=== PATIENT | female | born 1940 | race Two or more races ===

== ENCOUNTER 2017-07-29 08:45 | Emergency (ER) | payer OTHER ==
[2017-07-29] MEDS ORDERED: NS 500 ML IV ONE (09:08)
--- NOTE | 2017-07-29 09:18 | EDPHY ---
H & P Time Seen by Provider: 07/29/17 08:59 HPI/ROS: HPI Headache. History of brain aneurysm. 76-year-old female by private vehicle with her son. This patient complains of a chronic headache which she has had for about a year. The headache is described as mostly posterior radiating down into her occipital area. She reports that it has been worsening over the last month. And was significantly worse yesterday and today. She has been diagnosed with a brain aneurysm and recently had advanced CT and MR imaging on July 19. She is scheduled to see Dr. Chavez of the neurosurgical service on August 10. She was told that if her headache worsens she was to come to the emergency department. She called the office of Dr. Chavez and was sent to the ER. MR imaging of the brain from July 19 of this year indicates a 7 mm aneurysm identified at the right posterior communicating artery. MR angiogram of the carotid and vertebral vessels was unremarkable. ROS: Constitutional: No fever, no chills. No weakness. Eyes: No discharge. No changes in vision. ENT: No sore throat. No nasal congestion or rhinorrhea. Respiratory: No cough. No shortness of breath. Cardiac: No chest pain, no palpitations. Gastrointestinal: No abdominal pain, no vomiting, no diarrhea. Genitourinary: No hematuria. No dysuria or increased frequency with urination. Musculoskeletal: No back pain. No neck pain. No myalgias or arthralgias. Skin: No rashes. Neurological: As above. No focal weakness or altered sensation. Past medical history: As above. Social history: Here with her son. Nonsmoker. Denies alcohol. Physical Exam: General Appearance: Alert, no distress. This patient is responding to questions appropriately and in full sentences. This patient appears well- hydrated and well-nourished. Eyes: Pupils equal and round no pallor or injection. No lid edema, erythema or injection. No photophobia. No nystagmus. Respiratory: There are no retractions, lungs are clear to auscultation with good air movement bilaterally. Cardiovascular: Regular rate and rhythm. No murmur. Gastrointestinal: Abdomen is soft and nontender, no masses, bowel sounds normal. No focal tenderness at McBurney's point. No Martin sign. Neurological: Motor sensory function is grossly intact. Cranial nerves are normal. Gait is normal. Skin: Warm and dry, no rashes. Musculoskeletal: Neck is supple and nontender. No significant suboccipital pain. No pain on flexion of the neck. Extremities are symmetrical. All joints range without pain or impingement. Psychiatric: No agitation. No depression. Database: EKG: Imaging: Noncontrast CT scan of the brain: No acute pathology. Results were discussed with staff radiologist Dr. Chepe Martins. Please see his report for further details below. CT angiogram of the brain: No acute pathology. Results were discussed with staff radiologist Dr. Chepe Martins. Please see his report for further details below. Procedures: Emergency department course: IV placed. She was placed on a cardiac catheterization technologist vital signs reviewed. She is hypertensive initially in triage with a blood pressure of 167/109. Blood pressure will be monitored closely. 12:05 p.m., spoke with Dr. Crain of Neurosurgery. Results of CT angiogram as above discussed. Discussed previous MRAs as well. He feels comfortable with the patient going home and following up with Dr. Chavez on Monday. 12:10 p.m., patient re-evaluated. Resting comfortably at this time. Repeat neurologic Assessment is nonfocal. She denies any significant headache now. Results of her CT scans were discussed with her and her son. I discussed my conversation with Dr. Crain as well. Plan will be to discharge her to home and she will follow up with Dr. Chavez on August 10 as scheduled. I discussed thunderclap headache precautions and return precautions with her and her son in detail. She feels comfortable going home. All of her questions were answered. She was discharged in good condition Differential Diagnosis: The differential diagnosis on this patient includes but is not limited to chronic headache, history of brain aneurysm. Ruptured aneurysm, acutely expanding aneurysm, meningitis, encephalitis, subarachnoid hemorrhage unlikely. This represents a partial list of diagnoses considered. These considerations are based on history, physical exam, past history, reassessment and diagnostic testing. Smoking Status: Never smoked Constitutional: Initial Vital Signs Temperature (C) 36.9 C 07/29/17 08:53 Heart Rate 97 07/29/17 08:53 Respiratory Rate 16 07/29/17 08:53 Blood Pressure 167/109 H 07/29/17 08:53 O2 Sat (%) 95 07/29/17 08:53 O2 Delivery Mode Room Air Allergies/Adverse Reactions: No Known Allergies Allergy (Unverified 07/29/17 08:56) Home Medications: Medication Instructions Recorded Bp Med 07/29/17 Medical Decision Making - Data Points Laboratory Results: Laboratory Results 07/29/17 09:15 07/29/17 09:15 Medications Given: Discontinued Medications Sodium Chloride (Ns) 500 mls @ 0 mls/hr IV ONCE ONE; Wide Open PRN Reason: Protocol Stop: 07/29/17 09:09 Last Admin: 07/29/17 09:30 Dose: 500 mls Departure - Departure Disposition: Home, Routine, Self-Care Clinical Impression: Brain aneurysm, Headache Condition: Good Instructions: General Headache (ED), Nonruptured Cerebral Aneurysm (DC) Additional Instructions: Read and follow provided instructions. Follow-up with Dr. Chavez of the neurosurgical service as scheduled on August 10. Return to the emergency department for worsening headache, sudden onset thunderclap headache as discussed, instantly maximal intensity headache or other serious concerns. Referrals: KENNEDY OWENS [Other] - As per Instructions Ludwin Chavez MD [Medical Doctor] - As per Instructions
[2017-07-29 09:29] LABS: % IMMATURE GRANULYOCYTES 0.4 % (0.0-1.1); ABSOLUTE IMMATURE GRANULOCYTES 0.02 10^3/uL (0.00-0.10); ADD DIFF? NO; ADD MORPH? NO; ADD SCAN? NO; ATYPICAL LYMPHOCYTE FLAG 0 (0-99); FRAGMENT RBC FLAG 0 (0-99); HEMOGLOBIN 13.8 g/dL (12.6-16.3); LEFT SHIFT FLG 0 (0-99); LIPEMIA HEMOLYSIS FLAG 90 (0-99); MEAN CELL HEMOGLOBIN 35.8 pg (27.9-34.1); MEAN CELL HEMOGLOBIN CONCENTR. 36.3 g/dL (32.4-36.7); MEAN CELL VOLUME 98.4 fL (81.5-99.8); MEAN PLATELET VOLUME 9.8 fL (8.7-11.7); PLATELET CLUMPS FLAG 0 (0-99); PLATELET COUNT 226 10^3/uL (150-400); RED BLOOD CELL COUNT 3.86 10^6/uL (4.18-5.33); RED CELL DISTRIBUTION WIDTH 12.2 % (11.5-15.2)
[2017-07-29 09:38] LABS: ANION GAP 18 mEq/L (8-16); CALCIUM 10.3 mg/dL (8.5-10.4); CARBON DIOXIDE 20 mEq/l (22-31); CHLORIDE 108 mEq/L (97-110); CREATININE 0.7 mg/dL (0.6-1.0); GLOMERULAR FILTRATION RATE > 60; GLUCOSE 100 mg/dL (70-100); POTASSIUM 4.2 mEq/L (3.5-5.2); SODIUM 146 mEq/L (134-144)
[2017-07-29] MEDS ORDERED: IOPAMIDOL (ISOVUE 370) 100 ML BTL IV ONE (10:13)
[2017-07-29 12:11] VITALS: BP 130/90; PULSE 82; RESP 18; TEMP 96.8; O2SAT 97
== END 2017-07-29 12:33 | disposition home or self-care (01) ==
DX: R51 Headache (principal); I67.1 Cerebral aneurysm, nonruptured; E86.9 Volume depletion, unspecified
CPT/HCPCS: 70450; 70496; 96360; 99285; Q9967

== ENCOUNTER 2017-08-31 13:45 | Day surgery (SDC) | payer OTHER ==
[2017-08-31] MEDS ORDERED: GLUCAGON HCL 1 MG VIAL IVP PRN (13:50)
[2017-08-31] MEDS ORDERED: MEPERIDINE 25 MG/ML SYR IVP PRN (13:50)
[2017-08-31] MEDS ORDERED: NALOXONE HCL 0.4 MG/ML INJ IVP PRN (13:50)
[2017-08-31] MEDS ORDERED: fentaNYL 100 MCG/2 ML INJ IVP PRN (13:50)
[2017-08-31] MEDS ORDERED: FLUMAZENIL 0.5 MG/5 ML MDV IVP PRN (13:50)
[2017-08-31] MEDS ORDERED: ALTEPLASE 2 MG VIAL IVP PRN (13:50)
[2017-08-31] MEDS ORDERED: HEPARIN 10,000 UNIT/10 ML MDV (1,000 UNIT/ML) IVP PRN (13:50)
[2017-08-31] MEDS ORDERED: PROTAMINE SULFATE 50 MG/5 ML VIAL IVP PRN (13:50)
[2017-08-31] MEDS ORDERED: NALOXONE HCL 0.4 MG/ML INJ ONE (13:56)
[2017-08-31] MEDS ORDERED: fentaNYL 100 MCG/2 ML INJ ONE ×2 (13:56→13:57)
[2017-08-31] MEDS ORDERED: FLUMAZENIL 0.5 MG/5 ML MDV IVP ONE (13:56)
[2017-08-31] MEDS ORDERED: MIDAZOLAM 2 MG/2 ML VIAL ONE (13:57)
[2017-08-31] MEDS ORDERED: NS 1,000 ML IV SCH ×2 (14:00→16:45)
[2017-08-31 14:18] VITALS: PULSE 78; TEMP 97.7
[2017-08-31] MEDS: MIDAZOLAM 2 MG/2 ML VIAL IVP PRN (14:45)
[2017-08-31] MEDS ORDERED: IOPAMIDOL (ISOVUE-300) 100 ML BTL ONE (16:05)
[2017-08-31] MEDS ORDERED: ONDANSETRON 4 MG/2 ML VIAL IVP PRN (16:44)
[2017-08-31] MEDS ORDERED: OXYCODONE/APAP 5/325 TAB PO PRN (16:44)
[2017-08-31 20:40] VITALS: RESP 16
[2017-08-31 20:41] VITALS: BP 128/68; O2SAT 94
[2017-09-01] MEDS: MIDAZOLAM 2 MG/2 ML VIAL IVP PRN (11:46)
== END 2017-08-31 19:46 | disposition home or self-care (01) ==
LOC: FIMAGING 13:45
PROVIDERS: ATTEND Neurological Surgery
PROC: B31F1ZZ Fluoroscopy of Left Vertebral Artery using Low Osmolar Contrast (ICD-10-PCS; principal; 2017-08-31 18:32)
PROC: B3111ZZ Fluoroscopy of Right Brachiocephalic-Subclavian Artery using Low Osmolar Contrast (ICD-10-PCS; principal; 2017-08-31 18:32)
PROC: B3151ZZ Fluoroscopy of Bilateral Common Carotid Arteries using Low Osmolar Contrast (ICD-10-PCS; principal; 2017-08-31 18:32)
DX: I67.1 Cerebral aneurysm, nonruptured (principal); R51 Headache; Z87.891 Personal history of nicotine dependence
CPT/HCPCS: 36223; 36225; 36226; 99152; C1769; C1894; J1644; J2250; J2310; J3010; Q9967

== ENCOUNTER 2017-10-26 11:37 | Inpatient (IN) | payer OTHER ==
[2017-10-26] MEDS ORDERED: MIDAZOLAM 2 MG/2 ML VIAL IVP PRN (11:47)
[2017-10-26] MEDS ORDERED: FLUMAZENIL 0.5 MG/5 ML MDV IVP PRN (11:47)
[2017-10-26] MEDS ORDERED: HEPARIN 10,000 UNIT/10 ML MDV (1,000 UNIT/ML) IVP PRN (11:47)
[2017-10-26] MEDS ORDERED: PROTAMINE SULFATE 50 MG/5 ML VIAL IVP PRN (11:47)
[2017-10-26] MEDS ORDERED: ALTEPLASE 2 MG VIAL IVP PRN (11:47)
[2017-10-26] MEDS ORDERED: fentaNYL 100 MCG/2 ML INJ IVP PRN (11:47)
[2017-10-26] MEDS ORDERED: GLUCAGON HCL 1 MG VIAL IVP PRN (11:47)
[2017-10-26] MEDS ORDERED: NALOXONE HCL 0.4 MG/ML INJ IVP PRN ×2 (11:47→16:03)
[2017-10-26] MEDS ORDERED: MEPERIDINE 25 MG/ML SYR IVP PRN (11:47)
[2017-10-26] MEDS ORDERED: NS 1,000 ML IV SCH ×2 (12:00→16:00)
[2017-10-26] MEDS ORDERED: IOPAMIDOL (ISOVUE-300) 100 ML BTL ONE ×2 (12:45→17:02)
--- NOTE | 2017-10-26 12:55 | PDANEPAE ---
ANE History of Present Illness Patient presents for IR coil embolization of intracranial aneurysm ANE Past Medical History - Cardiovascular History Hx Hypertension: Yes Hx Arrhythmias: No Hx Chest Pain: No Hx Coronary Artery / Peripheral Vascular Disease: No Hx CHF / Valvular Disease: No Hx Palpitations: No - Pulmonary History Hx COPD: No Hx Asthma/Reactive Airway Disease: No Hx Recent Upper Respiratory Infection: No Hx Oxygen in Use at Home: No Hx Sleep Apnea: No Sleep Apnea Screening Result - Last Documented: Negative - Neurologic History Hx Cerebrovascular Accident: No Hx Seizures: No Hx Dementia: No - Endocrine History Hx Diabetes: No - Renal History Hx Renal Disorders: No Renal History Comment: current UTI - Liver History Hx Hepatic Disorders: No - Neurological & Psychiatric Hx Hx Neurological and Psychiatric Disorders: Yes Neurological / Psychiatric History Comment: Some depression over the last month - Cancer History Hx Cancer: No - Congenital Disorder History Hx Congenital Disorders: No - GI History Hx Gastrointestinal Disorders: Yes Gastrointestinal History Comment: GERD - Other Health History Other Health History: Headaches - Chronic Pain History Chronic Pain: Yes (headaches) - Surgical History Prior Surgeries: Hysterectomy. Cholecystectomy. Tonsilectomy. Ganglion cysts both hands. Appendectomy ANE Review of Systems Review of Systems: - Exercise capacity METS (RN): 6 METS ANE Patient History - Allergies Allergies/Adverse Reactions: No Known Allergies Allergy (Verified 10/26/17 12:17) - Home Medications Home medications: home medication list seen and reviewed Home Medications: Lisinopril 20 mg PO DAILY 08/30/17 [Last Taken 08/31/17 06:00] Amitriptyline HCl 10 mg PO HS 10/09/17 [Last Taken Unknown] Aspirin 325 mg (*) 325 mg PO DAILY 10/09/17 [Last Taken Unknown] Cephalexin 500 mg PO DAILY 10/09/17 [Last Taken Unknown] Clopidogrel mg PO DAILY 10/09/17 [Last Taken Unknown] Pantoprazole Sodium 40 mg PO DAILY 10/09/17 [Last Taken Unknown] - NPO status NPO Status: no food or drink >8 hours - Anes Hx Anes Hx: no prior problems - Smoking Hx Smoking Status: Former smoker - Family Anes Hx Family Hx Anesthesia Complications: None ANE Labs/Vital Signs - Vital Signs Blood Pressure: 152/103 Heart Rate: 96 O2 Sat (%): 95 Height: 152.4 cm Weight: 53.07 kg ANE Physical Exam - Airway Neck exam: FROM, decreased ROM Mallampati Score: Class 3 Mouth exam: small mouth opening - Pulmonary Pulmonary: no respiratory distress - Cardiovascular Cardiovascular: regular rate and rhythym - ASA Status ASA Status: II ANE Anesthesia Plan Anesthesia Plan: general endotracheal anesthesia Lines/Monitors: arterial line (RBA discussed)
[2017-10-26] MEDS ORDERED: LIDOCAINE 2% 5 ML SDV ONE (12:58)
[2017-10-26] MEDS ORDERED: ROCURONIUM 50 MG/5 ML VIAL ONE ×2 (12:58→14:38)
[2017-10-26] MEDS ORDERED: PROPOFOL 200 MG/20 ML VIAL ONE (12:58)
[2017-10-26] MEDS ORDERED: fentaNYL 100 MCG/2 ML INJ ONE ×2 (12:58→17:03)
[2017-10-26] MEDS ORDERED: REMIFENTANIL HCL 1 MG VIAL ONE ×2 (12:58)
--- NOTE | 2017-10-26 13:32 | PDHPUP ---
History & Physical Update H&P update statement: This history and physical update is based on an assessment of the patient which was completed after admission or registration (within 24 hours), but prior to the surgery/procedure. H&P update: H&P reviewed & patient examined, no change in patient's condition since H&P completed
[2017-10-26] MEDS ORDERED: HEPARIN 10,000 UNIT/10 ML MDV (1,000 UNIT/ML) ONE (14:16)
[2017-10-26] MEDS ORDERED: DEXAMETHASONE 4 MG/ML VIAL ONE (14:17)
[2017-10-26] MEDS ORDERED: ONDANSETRON 4 MG/2 ML VIAL ONE (14:17)
[2017-10-26] MEDS ORDERED: PHENYLEPHRINE 10 MG/ML SDV ONE (14:17)
[2017-10-26] MEDS ORDERED: SUGAMMADEX SODIUM 200 MG/2 ML VIAL IVP ONE (15:26)
[2017-10-26] MEDS ORDERED: OXYCODONE/APAP 5/325 TAB PO PRN (16:00)
[2017-10-26] MEDS ORDERED: ONDANSETRON 4 MG/2 ML VIAL IVP PRN ×2 (16:00→16:03)
--- NOTE | 2017-10-26 16:00 | POSTOPPROG ---
Post Op Note Date of Operation: 10/26/17 Surgeon: Ludwin Chavez Impregnating Tank Operator: none Anesthesia: GET(General Endotracheal) Pre-op Diagnosis: unruptured right Pcomm/sup hypophyseal aneurysm Post-op Diagnosis: same Indication: unruptured right Pcomm/sup hypophyseal aneurysm Procedure: coil/pipeline embolization of right Pcomm and sup hypophyseal aneurysms Findings: successful coil/pipeline embolization Inf/Abcess present in the surg proc area at time of surgery?: No EBL: Minimal
[2017-10-26] MEDS ORDERED: LR 500 ML IV PRN (16:03)
[2017-10-26] MEDS ORDERED: LABETALOL HCL 5 MG/ML 20 ML MDV IVP PRN (16:03)
--- NOTE | 2017-10-26 16:06 | POSTANESTH ---
Post Anesthetic Evaluation Cardiovascular Status: Similar to Pre-Op Cond Respiratory Status: Similar to Pre-op Cond. Level of Consciousness/Mental Status: Alert and Oriented Pain Control: Adequate, Prn Tx Ordered Nausea/Vomiting Control: Adequate, Prn Tx Ordered Complications Possibly Related to Anesthesia: None Noted (ECG ordered in PACU due to ST-depression seen on the monitor. Patient asymptomatic. ECG shows t- wave inversion in lateral leads. No ST-elevation.)
--- NOTE | 2017-10-26 17:45 | CPEKG ---
Heart Rate: 68 RR Interval: 882 P-R Interval: 156 QRSD Interval: 80 QT Interval: 400 QTC Interval: 426 P Purmela: 42 QRS Purmela: -3 T Wave Purmela: 254 EKG Severity - OTHERWISE NORMAL ECG - EKG Impression: SINUS RHYTHM EKG Impression: NON-SPECIFIC ST T CHANGES NOTED EKG Impression: LOW VOLTAGE IN FRONTAL LEADS Electronically Signed By: Konstantin Francis 26-Oct-2017 20:36:24
--- NOTE | 2017-10-26 17:56 | SOAPPROG ---
SOAP Progress Note Assessment/Plan: Assessment: Cardiology consult performed and dictated tonight. 76 y/o woman with HTN and GERD who just had IR procedure with coil insertion in cranial artery for aneursym. During procedure, marked ST depression. In PACU, pleuritic CP with ecg showing ST depression 1mm in anterior-lateral leads and TWI V2-V6. After IV fentanyl, now CP- free. BP 155/92. Of note pt reports she had a coronary angiogram at [facility] in 04/30 and no PCI needed. Has not seen a granite polisher since. Usually she can walk 1-2 miles without sx. IMP: 1)HTN 2)Abnormal ECG 3)resolved CP REC: 1)no need to go to label fuser tender currently. 2)treat BP with Nitropaste 1'' q6hrs and her home Lisinopril 20mg PO daily 3)serial cardiac isoenzymes x 3 overnight 4)ecg in AM 5)echo in AM 6)if negative cardiac troponins and okay BP control and normal echo, could go home tomorrow afternoon. Thanks. Cardiology service will follow with you. 10/26/17 17:51 Objective: Vital Signs Temp Pulse Resp BP Pulse Ox 36.8 C 96 15 138/97 H 99 10/26/17 16:33 10/26/17 12:55 10/26/17 17:46 10/26/17 17:46 10/26/17 17:46 10/25/17 10/26/17 10/27/17 05:59 05:59 05:59 Intake Total 2030 Output Total 20 Balance 2010 ICD10 Worksheet Patient Problems: Problems Problem Status Onset Abnormal ECG Acute Chest pain at rest Acute HTN (hypertension) Acute - ICD10 Problem Qualifiers (1) Chest pain at rest (2) Abnormal ECG (3) HTN (hypertension)
[2017-10-26] MEDS: NITROGLYCERIN 2% 1 GM PACKET TP SCH ×2 (18:37→23:51)
[2017-10-26 18:39] LABS: CREATINE KINASE 76 IU/L (0-156)
--- NOTE | 2017-10-26 19:07 | GCON ---
[f rep st] CONSULTATION DATE OF CONSULTATION: 10/26/2017 REASON FOR CONSULTATION: Evaluate woman with pleuritic bilateral chest pain in the PACU, status post interventional radiology procedure with coil in 1 of her cerebral artery vessels and abnormal EKG. HISTORY OF PRESENT ILLNESS: The patient is a 76-year-old woman with a history of hypertension and GE RD. She notes she had a heart catheterization done in April 2017 at [facility] and was told there were no problems and she needed no stents. She has not seen a time study clerk since. S he usually can walk 1-2 miles a day without symptoms. She was having headaches and found to have a c erebral aneurysm, and today had interventional radiology put a coil in. During the procedure, she de la garza d marked 3-[address]-depression in her anterior leads. In the PACU, she had some pleuritic chest pain, which is now relieved with IV fentanyl. Her EKG in the PACU shows normal sinus rhythm with [address] depression in V2 through V6, and T-wave inversions in V2 through V6. There is no ST elevation. S he currently is pain free and reports no headache, shortness of breath or back pain. Her blood press ure is 155/92. PAST MEDICAL HISTORY: GERD and hypertension. PAST SURGICAL HISTORY: Cholecystectomy, appendectomy, and hysterectomy. HOME MEDICATIONS: Lisinopril 20 mg per day, aspirin, Plavix 75 mg per day, Elavil, and Protonix. ALLERGIES: No known drug allergies. SOCIAL HISTORY: The patient quit tobacco use 6 months ago and has an about 30-35 pack-year smoking h istory. She has minimal alcohol intake. FAMILY HISTORY: Unremarkable for premature coronary artery disease. REVIEW OF SYSTEMS: Patient reports no cough, palpitations, or PND. Rest of 10-point review of syste ms is negative. PHYSICAL EXAM: VITAL SIGNS: Afebrile, pulse 70 and regular, blood pressure 155/92, respirations 18. GENERAL: A comfortable-appearing woman in no acute distress without chest pain or using accessory respiratory muscles. EYES: Pupils equal and reactive to light. ENT: Oral mucosa with no cyanosis. NECK: Jugular venous pressure to 7 cm. Carotid pulses 2+ bilaterally with no obvious bruits. No thyromegaly noted. LUNGS: Clear to auscultation bilaterally without rales, rhonchi, or wheezing. H EART: Normal PMI. Regular rate and rhythm with positive S4 but no S3 and no murmurs heard. ABDOMEN: Soft and nontender. No guarding or rebound. No ascites or hepatosplenomegaly. EXTREMITIES: 2+ p eripheral pulses including femoral and pedal pulses. No edema noted. MUSCULOSKELETAL: No scoliosis. NEURO: Normal affect and mood. Neck with no nuchal rigidity. SKIN: No bleeding or cyanosis. DIAGNOSTIC STUDIES: EKG: Normal sinus rhythm with [address] depression noted in V2 through V6 with associated T-wave inversions in the anterolateral leads. LABORATORY DATA: White count 5.6, hematocrit 38, platelets 223,000, MCV 98. INR 0.88. Sodium 141, potassium 4.4, chloride 103, bicarb 25, BUN 13, creatinine 0.8, glucose 89. IMPRESSION AND RECOMMENDATIONS: A 76-year-old woman with resolved episode of atypical chest pain for cardiac ischemia with markedly abnormal EKG and elevated blood pressure. Her EKG could all be secon julee to her central nervous system issues. I do not think she is having unstable angina or a myocard ial infarction. She needs control of her blood pressure. RECOMMENDATIONS: 1. Do not think she needs to go to the oil laboratory analyst acutely from the PACU. 2. She is being transferred to the ICU and would put nitro paste 1 inch q.6 hours on for blood press ure and empiric anti-anginal relief, along with giving her normal lisinopril 20 mg per day. 3. Would get cardiac enzymes q.5 hours x3 sets overnight. 4. Would get an echocardiogram in the morning to evaluate her chest pain and confirm she has normal left ventricular function with no wall motion abnormalities. 5. Will get a repeat EKG in the morning. 6. As long as her troponins are negative, her blood pressure is controlled, and her echo is normal, feel she could be discharged home later tomorrow afternoon with close followup of her blood pressure by her PCP. 7. If she does have a troponin leak, would probably recommend repeat heart catheterization this hosp italization. /[id number]/MODL
[2017-10-27 00:27] LABS: CREATINE KINASE 63 IU/L (0-156)
[2017-10-27] MEDS ORDERED: CEPACOL LOZENGE PO ONE (05:37)
[2017-10-27] MEDS: NITROGLYCERIN 2% 1 GM PACKET TP SCH ×2 (05:57→14:35)
[2017-10-27] MEDS ORDERED: ACETAMINOPHEN 325 MG TAB ONE (06:13)
--- NOTE | 2017-10-27 07:58 | CPEKG ---
Heart Rate: 90 RR Interval: 667 P-R Interval: 172 QRSD Interval: 78 QT Interval: 380 QTC Interval: 465 P Cromwell: 48 QRS Cromwell: -17 T Wave Cromwell: 228 EKG Severity - ABNORMAL ECG - EKG Impression: SINUS RHYTHM EKG Impression: BORDERLINE LEFT AXIS DEVIATION EKG Impression: REPOL ABNRM SUGGESTS ISCHEMIA, ANT-LAT LEADS Electronically Signed By: Konstantin Francis 27-Oct-2017 12:59:26
--- NOTE | 2017-10-27 08:41 | CPEKG ---
Heart Rate: 63 RR Interval: 952 P-R Interval: 168 QRSD Interval: 80 QT Interval: 428 QTC Interval: 439 P Friendship: 28 QRS Friendship: 5 T Wave Friendship: -73 EKG Severity - ABNORMAL ECG - EKG Impression: SINUS RHYTHM EKG Impression: NONSPECIFIC T ABNORMALITIES, DIFFUSE LEADS Electronically Signed By: Konstantin Francis 27-Oct-2017 10:32:27
[2017-10-27] MEDS ORDERED: ASPIRIN 81 MG CHEWABLE TAB PO SCH (09:00)
[2017-10-27] MEDS ORDERED: LISINOPRIL 20 MG TAB PO SCH (09:00)
[2017-10-27] MEDS ORDERED: PANTOPRAZOLE SODIUM 40 MG TAB PO SCH (09:00)
[2017-10-27] MEDS ORDERED: CLOPIDOGREL BISULFATE 75 MG TAB PO SCH (09:00)
--- NOTE | 2017-10-27 09:00 | NEUSURGPN ---
Assessment/Plan: A: 76 yo F POD#1 s/p coil/pipeline embolization of right Pcomm and sup hypophyseal aneurysms P: On plavix and ASA Cardiology following for abnormal EKG Has mild headache - can take tylenol. She doesn't want to take narcotics Encourage ambulation Call NS with any Qs DC to home later today if cleared by cardiology Subjective: Pt resting in bed, c/o mild headache. Objective: AAOx3 NAD VSS MAEx4 Groin incision cdi no swelling +LT Urinary Catheter in Place: No Catheter Insertion Date: 10/26/17 - Physician Discussed Patient with : [facility] Physical Exam - Vitals, I&O, Labs I and O 10/26/17 10/27/17 10/28/17 05:59 05:59 05:59 Intake Total 2530 Output Total 970 Balance 1560 Weight 53.07 kg Intake: Oral (ml) 530 IV Intake (ml) 2000 Output: Urine (ml) 950 Catheter 950 Estimated Blood Loss (ml) 20 Vital Signs Temp Pulse Resp BP Pulse Ox 36.8 C 63 15 115/64 95 10/27/17 00:00 10/27/17 08:00 10/27/17 08:00 10/27/17 08:00 10/27/17 08:00 ICD10 Worksheet Patient Problems: Problems Problem Status Onset Abnormal ECG Acute Chest pain at rest Acute HTN (hypertension) Acute
--- NOTE | 2017-10-27 09:58 | PDMN ---
Medical Necessity Medical necessity: Pt meets INPT criteria per and [facility] Neurosurgery or Procedure GRG ( Inpt Only surgery).
--- NOTE | 2017-10-27 10:40 | ECHO ---
[email or web address] [address] [address] Main: [phone] Fax: [email or web address] Echocardiogram Name: LUZMA SANTOS MR#: [id number] Study Date: 10/27/2017 Study Time: 08:06 AM Date of : 1940 Age: 76 year(s) Height: 152.4 cm (60 in.) Weight: 52.62 kg (116 lb.) BSA: 1.48 m2 Gender: Female Examination: Echo Indication: cp, abnomal ecg Image Quality: Adequate Contrast: Requested by: Anthony Samaniego BP: 115 mmHg/64 mmHg Heart Rate: Rhythm: Normal sinus rhythm Indication: cp, abnomal ecg Procedure Staff Floor Polisher: Denise Oquendo [facility] Reading Physician: Reuben Randle MD Requesting Provider: Conclusions: Normal size left ventricle. Normal global systolic LV function. EF is 55 %. No regional wall motion abnormality. Normal diastolic LV function. The left atrium is mildly dilated. Lipomatous interatrial septum. Trivial to mild mitral regurgitation. Trivial to mild aortic valve regurgitation. Moderate tricuspid regurgitation is present. Right ventricular systolic pressure measures 34mmHg. Measurements: Chambers Valvular Assessment AV/MV Valvular Assessment TV/PV Normal Normal Normal Name Value Range Name Value Range Name Value Range Ao Patricia (MM): 3.0 cm (2.2 cm-3.7 AV Vmax: 1.39 m/s (1 m/s-1.7 TR Vmax: 2.67 mm/s ( - ) cm) m/s) TR PGmax: 29 mmHg ( - ) IVSd (2D): 1.0 cm (0.6 cm-1.1 AV maxP mmHg ( - ) syst. PAP: 34 mmHg ( - ) cm) LVOT Vmax: 0.88 m/s (0.7 m/s-1.1 PV Vmax: 0.71 m/s (0.6 m/s-0.9 LVDd (2D): 4.2 cm (3.9 cm-5.3 m/s) m/s) cm) MV E Vmax: 0.49 m/s ( - ) PV PGmax: 2 mmHg ( - ) LVDs (2D): 3.0 cm (2.1 cm-4 MV A Vmax: 0.70 m/s ( - ) cm) MV E/A: 0.70 ( - ) LVPWd (2D): 1.0 cm ( - ) LVEF (BP): 55 % (>=55 %) RVDd(2D): 2.9 cm (1.9 cm-3.8 cmmm) Continued Measurements: Patient: LUZMA SANTOS Study Date: 10/27/2017 Page 1 of 2 08:06 AM Chambers Valvular Assessment AV/MV Valvular Assessment TV/PV Name Value Name Value Name Value LADs Lon.3 cm MV DecTime: 289 m/s CVP (est.): 5 mmHg LA Area: 16.4 cm2 MV E/E' Septal: 11.40 LA Volume: 52 ml MV E/E' Lateral: 7.70 LA Volume Index: 35.1 ml/m2 RA Area: 14.0 cm2 Additional Vessels Name Value Ao Ascendin.2 cm Findings: Left Ventricle: Normal size left ventricle. No LV hypertrophy. Normal global systolic LV function. EF is 55 %. No regional wall motion abnormality. Normal diastolic LV function. Right Ventricle: Normal size right ventricle. Normal RV function. Left Atrium: The left atrium is mildly dilated. Lipomatous interatrial septum. Right Atrium: The right atrium is normal in size. Mitral Valve: The mitral valve is normal in appearance and function. There is mild thickening of the mitral valve leaflets. Trivial to mild mitral regurgitation. No mitral stenosis is present. Aortic Valve: The aortic valve is tri-leaflet and functions normally. Trivial to mild aortic valve regurgitation. No aortic valve stenosis is present. Tricuspid Valve: The tricuspid valve is normal in appearance and function. Moderate tricuspid regurgitation is present. Right ventricular systolic pressure measures 34mmHg. The pulmonary artery pressure is normal. Pulmonic Valve: The pulmonic valve is normal in appearance and function. Mild pulmonic valve regurgitation is noted. Aorta: The aorta is normal. Normal size aortic root measuring 3.0 cm. Normal size ascending aorta measuring 3.2 cm. IVC: The IVC is normal sized. Pericardium: No pericardial effusion. (No Signature Object) Patient: LUZMA SANTOS Study Date: 10/27/2017 Page 2 of 2 08:06 AM [id number]
--- NOTE | 2017-10-27 10:46 | SOAPPROG ---
SOAP Progress Note Assessment/Plan: Assessment: She had dynamic ST changes noted on telemetry last night during a period of time when she was undergoing percutaneous coiling of a cerebral aneurysm. Following that procedure she had atypical epigastric discomfort. Her workup thus far has been normal. It is very possible that the ST changes noted on telemetry were result of the neuro surgical procedure that she was experiencing. It is also possible that the telemetry monitors were artifactually demonstrating ST changes. It is reassuring to know that she recently had a coronary angiogram that failed to demonstrate any evidence of CAD. Plan: At this point I think that she can be discharged home with close follow-up. I do not think he requires any further cardiovascular workup. 10/27/17 10:47 Subjective: The patient was seen and examined. Her chart was reviewed. I personally reviewed her echocardiogram. She was seen last night by Dr. Anthony Park. She had symptoms of epigastric discomfort which occurred following percutaneous coiling of a cerebral aneurysm. She states that she has a history of GERD. During the procedure was noted that she had significant ST changes on her telemetry. She was placed in the ICU. Sequential cardiac enzymes were performed which were negative. Her echocardiogram this morning does not suggest any wall motion abnormalities. Her baseline EKG indicates anterior T- wave changes. She states that she was admitted with chest discomfort at an outside hospital late last year. She had a coronary angiogram was told that her heart arteries were normal. Objective: Vital Signs Temp Pulse Resp BP Pulse Ox 36.8 C 63 19 137/58 H 97 10/27/17 00:00 10/27/17 09:00 10/27/17 09:00 10/27/17 09:00 10/27/17 09:00 10/26/17 10/27/17 10/28/17 05:59 05:59 05:59 Intake Total 2530 Output Total 970 Balance 1560 Physical Exam - Physical Exam General Appearance: WD/WN, no apparent distress Neck: non-tender, full range of motion Respiratory: chest non-tender, lungs clear Cardiac/Chest: normal peripheral pulses, regular rate, rhythm, No edema, No gallop, No JVD Peripheral Pulses: 2+: carotid (R), carotid (L) Abdomen: non-tender, soft Pelvic Exam: deferred Rectal: deferred Neuro/Psych: alert, oriented x 3 ICD10 Worksheet Patient Problems: Problems Problem Status Onset Abnormal ECG Acute Chest pain at rest Acute HTN (hypertension) Acute
--- NOTE | 2017-10-27 13:31 | ASMTCASEMG ---
Living Arrangements What is your living Answers: Alone arrangement? Who do you live with? Type Of Residence What kind of residence do Answers: House you live in? Discharge Plan Comments Coordination Status Comments Notes: Patient is a 76yo woman who was admitted for an elective embolization of aneurysm. Patient is doing well post procedure and neurology states she can most likely be d/c'ed today with close follow-up. No therapies ordered. CM available if d/c needs arise. Date Signed: 10/27/2017 01:30 PM Electronically Signed By:She Malik LCSW
[2017-10-27 13:32] VITALS: BP 136/57; PULSE 62; RESP 14; TEMP 97.3; O2SAT 95
[2017-10-27] MEDS ORDERED: AMITRIPTYLINE HCL 10 MG TAB PO SCH (21:00)
== END 2017-10-27 14:12 | disposition home or self-care (01) | DRG 27 ==
LOC: FSGY 11:37 → F2N 15:16
PROVIDERS: ADMIT Neurological Surgery; ATTEND Neurological Surgery
PROC: 03VG3DZ Restriction of Intracranial Artery with Intraluminal Device, Percutaneous Approach (ICD-10-PCS; principal; 2017-10-26 13:00)
DX: I67.1 Cerebral aneurysm, nonruptured (principal); R07.89 Other chest pain; R94.31 Abnormal electrocardiogram [ECG] [EKG]; I10 Essential (primary) hypertension; K21.9 Gastro-esophageal reflux disease without esophagitis; Z87.891 Personal history of nicotine dependence
CPT/HCPCS: C1769; C1893; C1894; J1100; J1644; J2370; J2405; J2704; J3010; Q9967

== ENCOUNTER → 2018-07-20 | Outpatient (CLI) | payer OTHER ==
[~2018-07-20] MED LIST: GADOBUTROL 10 ML VIAL IVP ONE
== END ==
LOC: FIMAGING 13:58
PROVIDERS: ATTEND Neurological Surgery
DX: I67.1 Cerebral aneurysm, nonruptured (principal); Z98.62 Peripheral vascular angioplasty status; Z98.890 Other specified postprocedural states
CPT/HCPCS: 70544; 70553; A9585; 82565-PO